=== PATIENT | male | born 1980 ===

== ENCOUNTER 2021-12-05 07:07 | Outpatient (CLI) | payer OTHER | END 2021-12-05 15:02 | disposition home or self-care (01) | LOC: LAB 07:07 | PROVIDERS: ATTEND Urology | DX: Z01.812 Encounter for preprocedural laboratory examination (principal); I11.9 Hypertensive heart disease without heart failure; Z20.822 Contact with and (suspected) exposure to COVID-19; Z01.811 Encounter for preprocedural respiratory examination ==

== ENCOUNTER 2021-12-12 07:05 | Day surgery (SDC) | payer OTHER ==
[~2021-12-12 07:05] MED LIST: AVAPRO150 MG PO
== END 2021-12-12 18:05 | disposition home or self-care (01) ==
LOC: CIR.AMB 07:05
PROVIDERS: ATTEND Urology
DX: I86.1 Scrotal varices (principal); Z20.822 Contact with and (suspected) exposure to COVID-19; I10 Essential (primary) hypertension; Z86.16 Personal history of COVID-19